=== PATIENT | female | born 1935 | race Caucasian/White ===

== ENCOUNTER → 2018-01-01 12:22 | Outpatient (REF) | payer MEDICARE, SELFPAY ==
[2018-01-01 12:29] LABS: Add Manual Diff / Slide Review NO; Basophils Percent Auto 0.4 %; Eosinophils Percent Auto 1.1 %; Hematocrit 29.3 %; Hemoglobin 9.6 g/dL; Lymphocytes Percent Auto 38.4 %; Mean Corpuscular HGB Conc 32.7 %; Mean Corpuscular Hemoglobin 31.6 PG; Mean Corpuscular Volume 96.5 fL; Monocytes Percent Auto 6.4 %; Neutrophils Absolute Auto 3700 /uL; Neutrophils Percent Auto 53.7 %; Platelet Count 151 X10^3/uL; Red Blood Cell Count 3.04 X10^6/uL; Red Cell Distribution Width 19.9 %; White Blood Cell Count 6.8 X10^3/uL
== END ==
LOC: LAB 12:22
PROVIDERS: Visit Provider Physician Assistant
DX: D64.9 Anemia, unspecified (principal)
CPT/HCPCS: 85025